=== PATIENT | male | born 1945 | race Caucasian/White ===

== ENCOUNTER 2017-04-25 09:40 | Inpatient (IN) | payer MEDICARE ==
[~2017-04-25] VITALS: Ht 178 cm; Wt 100.0 kg
[2017-04-25] VITALS (15 sets, daily range): BP systolic 110–165; BP diastolic 62–111
--- NOTE | ~2017-04-25 | O ---
[place], [place] OPERATIVE NOTE NAME: IVET JURADO UNIT #: [id number] ROOM: [place] [address] DOCTOR[facility] B[facility] [birth year] DOS: GASTROENDOSCOPIC REPORT HISTORY OF PRESENT ILLNESS: A 71-year-old patient who presented with chief complaint of black tarry stool, history of heavy alcohol consumption, history of esophageal band ligation, the way I understand from him, which has been done in [place] in the past. PAST MEDICAL HISTORY: Coronary artery disease, BPH, diabetes mellitus, and hypertension, migraine cephalalgia. He has been on aspirin products. PROCEDURE: Today's procedure part of investigation is panendoscopy. PREMEDICATION: Versed and Diprivan. SCOPE: Olympus forward-viewing gastroscope Q10 video. REPORT: After putting the patient in the left lateral position and after application of lubricant to the scope, the scope was introduced; thereafter, under direct visualization, advanced through the length of the esophagus. Cervical, thoracic, and distal esophagus was carefully approached, there is severe distal esophageal circular, large segment necrotic ulcers, which is over the underlying esophageal varicosities and at one point we documented oozing from the area. Photographic series obtained. Iced lavage of the area was done. Gastric pouch was entered. Large hiatal hernia seen. Gastric pouch consistent with gastritis. The patient after iced lavage was extubated, tolerated the procedure well. IMPRESSION: Distal esophageal ulcer with necrosis and bleeding, underlying esophageal varicosity. PLAN AND DISCUSSION: The patient has been on aspirin. This is going to be discontinued. The patient is going to be given 6-pack units of platelets for his bleeding to reverse the thrombocytopathy of the aspirin induction. We are going to keep him on Protonix drip. We are going to start him on Sandostatin drip. We are going to keep him in ICU, Gaviscon 2 tablets after meals and at bedtime is going to be permitted, ice cold ice chips, ice water and ice cream. He is already on Toprol-XL 12.5 mg b.i.d. We are going to continue with antiemetics Zofran and we will see if we can have the control of bleeding through reversal of aspirin effect and Sandostatin drip. His underlying disease problem as far as liver has to be verified as serum ammonia level is going to be organized. Lactic acid has been so far negative, workup in progress, ICU management. [place], [place] OPERATIVE NOTE NAME: IVET JURADO UNIT #: [id number] ROOM: [place] [address] DOCTOR: JAMES LEMUS,JOSE ALBERTO BIRTHDATE: [birth year] JOSE ALBERTO RAMIREZ MD CM:OPRECORD:OPERATIVE NOTE 1726 01 JOSE ALBERTO RAMIREZ MD 04/25/172201 interface
--- NOTE | ~2017-04-25 | CON ---
[place], [place] REPORT OF CONSULTATION NAME: IVET JURADO UNIT #: [id number] ROOM: [place] [address] DOCTOR: ZAIN BREWER MD BIRTHDATE: [birth year] DOS: 04/26/2017 NEPHROLOGY CONSULTATION REASON FOR CONSULTATION: Hyponatremia. HISTORY OF PRESENT ILLNESS: The patient is a 71-year-old male. He has a history apparently of alcohol abuse, diabetes, coronary artery disease. He was admitted to the hospital teams with dizziness and hiccups. Apparently, he had an ER visit the day before that with complaints of acid reflux. Again, I did not know the details. The patient had routine labs, which showed hyponatremia as well. Due to his multiple issues, he was admitted to the hospital. Eventually, the patient suddenly became agitated, had DTs, which required ICU admission. He was actually in 4-point restraints. On 04/24, he had labs that showed a sodium of 124. Yesterday, he had 2 lab results, which revealed a sodium of 127 on both occasions. It seems he may have gotten a little bit of fluids including a banana bag. We were consulted yesterday and my partner, Dr. Mata gave instructions not to give any fluid and recheck labs. I was called last night with a sodium level of 127, which was stable and gave no orders. The patient had urine electrolytes that were reviewed and urine osmolality. This afternoon I had seen him, he was again in full DTs and 4-point restraints. His sodium level was 134. I was unable to get any history from the patient due to his current status. ALLERGIES: Listed to BEE STINGS. HOME MEDICATIONS: Included Lexapro, simvastatin, metoprolol, folic acid, aspirin, naltrexone, metformin, vitamin D, thiamine. PAST MEDICAL HISTORY: 1. Alcohol abuse. 2. Anemia. 3. BPH. 4. Coronary artery disease. 5. Diabetes. 6. GERD. 7. History of GI bleed with varices. 8. Hypertension. 9. Leukocytosis. 10. Renal calculi. 11. Appendectomy. 12. History of CABG. 13. Eye surgery. 14. AAA repair. FAMILY HISTORY: From what I can gather, there is no reported history of chronic kidney disease, otherwise noncontributory. There is no history of electrolyte disorders. SOCIAL HISTORY: No illicit drugs. He has a history of tobacco abuse and [place], [place] REPORT OF CONSULTATION NAME: IVET JURADO UNIT #: [id number] ROOM: [place] [address] DOCTOR: ZAIN BREWER MD BIRTHDATE: [birth year] alcohol. REVIEW OF SYSTEMS: As per HPI, otherwise a 10-point review of systems was reviewed and was negative or limited due to his current status. PHYSICAL EXAMINATION: VITAL SIGNS: Temperature 98, pulse 110, respirations 24, blood pressure 153/83. GENERAL: He is critically ill, in 4-point restraints, agitated. HEENT: Shows no appreciable JVD. Sclerae appear anicteric. Mucous membranes appear dry. His oropharynx is otherwise appeared to be clear. NECK: Supple. Trachea is midline. There is no neck lymphadenopathy. There is no thyromegaly. LUNGS: Diminished breath sounds, no appreciable wheeze. There is no tactile fremitus. HEART: Tachycardic. Normal S1, S2. No rub, thrill, or gallop. ABDOMEN: Soft, nontender. I do not appreciate organomegaly, rigidity, rebound, or guarding. There is no CVA tenderness. EXTREMITIES: Showed no edema in his lower extremity or lymphadenopathy. Distal pulses are present. SKIN: Showed no overt rash. There are no petechiae or purpura. Skin temperature was warm. NEUROLOGIC: He was agitated, around at the bed, otherwise neurologic exam was limited. LABORATORY DATA: Hemoglobin 11.7, white count of 6.2, platelets 123. Sodium 134, potassium 4.1, calcium 8.3, albumin 3.4, BUN 12, creatinine 0.97. CK level was 1466. Ammonia 14. Previous CK level was higher at 1621. Urine osmolality was 283. Urine sodium is 14. IMPRESSION: 1. Hyponatremia, which has resolved. This may have been related to volume depletion as well as a low solute state due to likely poor nutrition in the setting of alcohol abuse. 2. History of alcohol abuse with now delirium tremens. 3. Hypertension. 4. Coronary artery disease. 5. Anemia with questionable gastrointestinal bleed. 6. History of tobacco abuse. 7. Mild rhabdomyolysis, which is improving. PLAN: 1. Continue ICU care. Continue treatment for DTs. 2. Consider starting a beta-steven as well as clonidine for his DTs and hypertension. 3. From a renal standpoint, it appears acceptable to start some low rate of fluids. Normal saline would be acceptable; however, if his sodium level tends to rise fast, switch over to half normal saline. 4. Continue to follow labs routinely. 5. From a renal standpoint, does not appear to be any acute issues and his hyponatremia essentially has resolved. We will sign off for now. [place], [place] REPORT OF CONSULTATION NAME: IVET JURADO UNIT #: [id number] ROOM: [place] [address] DOCTOR: DANIELLA LEMUS,ZAIN Perez BIRTHDATE: [birth year] Thank you for this consultation. ZAIN BREWER MD CM:CONSTR:REPORT OF CONSULTATION 1318 04/27/17 0411 interface
--- NOTE | ~2017-04-25 | CON ---
[place], [place] REPORT OF CONSULTATION NAME: IVET JURADO UNIT #: [id number] ROOM: [place] [address] DOCTOR: JOSE ALBERTO RAMIREZ MD BIRTHDATE: [birth year] DOS: 04/25/2017 HISTORY OF PRESENT ILLNESS: A 71-year-old patient who has presented with chief complaint of black tarry stool and concerns. The patient with aggressive alcohol consumption. Recent H was 13 and 40; however, his INR 1.1, magnesium 1.7, lactic acid baseline was 1.7, ethyl alcohol 3. Urine drug screening was unremarkable. Basic metabolic panel shows sodium of 127. CTA of the chest, hiatal hernia, severe reflux, air fluid level at distal esophagus. PAST MEDICAL HISTORY: Associated with cirrhosis, portal hypertension, esophageal varicosities, diabetes mellitus, obesity, hypertension, migraine, cephalalgia. PAST SURGICAL HISTORY: Appendectomy, CABG, abdominal aortic aneurysm repair, eye surgery. SOCIAL HISTORY: Nicotine and heavy alcohol consumption history. FAMILY HISTORY: Noncontributory. ALLERGIES: BEE STING. MEDICATIONS: List has been reviewed. He has been on aspirin. REVIEW OF SYSTEMS: HEENT: Denies double vision, blurry vision. RESPIRATORY: Denies acute shortness of breath. CARDIOVASCULAR: Denies acute chest pain. DIGESTIVE SYSTEM: Black tarry stool, history of cirrhosis and esophageal varicosity and portal hypertension. PHYSICAL EXAMINATION: GENERAL: Obese patient. HEENT: Head normocephalic, nontraumatic. Mouth and buccal mucosa benign. NECK: Supple, no thyromegaly, no cervical lymphadenopathy. CHEST: Symmetric anatomy, equal expansion. No wheeze, no rhonchi. HEART: Normal sinus rhythm, no gallop, no murmur. ABDOMEN: Soft. No hepato-organomegaly, obese, large. No rebound tenderness. EXTREMITIES: No cyanosis, no pedal edema. NEUROLOGIC: Alert and oriented. IMPRESSION: Black tarry stool, ruling out gastrointestinal contribution. Concern is that the patient has had esophageal varicosity. He is telling me that it has been addressed in [facility] in the past and if so, we can prove if he has retrospectively portal hypertension or any contribution from upper gastrointestinal. His radiologic studies, otherwise CTA of the chest reviewed, which has been negative; CT of the head reviewed, no acute intracranial pathology has been identified. PLAN AND DISCUSSION: Upper endoscopy ruling out contribution to black tarry [place], [place] REPORT OF CONSULTATION NAME: IVET JURADO UNIT #: [id number] ROOM: [place] [address] DOCTOR: JAMES LEMUS,JOSE ALBERTO BIRTHDATE: [birth year] stool provided it is not false positive black tarry stools. JOSE ALBERTO RAMIREZ MD CM:CONSTR:REPORT OF CONSULTATION 1704 04/26/17 0019 interface
[~2017-04-25 09:40] MED LIST: ADVAIR 250/501 EA; ALPRAZOLAM0.5 M2 PO; AMOXICILLIN500 M1 PO; ANTABUSE250 M1 PO; ANTIVERT25 MG PO; ATARAX,VISTARIL50 MG PO; ATIVAN1 MG PO; B-1100 MG PO; CLOBETASOL PROP0.05% T; EPI-PEN1 MG/ML MR; FINASTERIDE5 MG PO; FLUOCINOLONE AC T; FLUOCINONIDE0.05% T; LISINOPRIL10 MG PO; LISINOPRIL20 MG PO; METOPROLOL TART50 M1 PO; MIRALAX POWDER17 G1 PO; MIRALAX POWDER17 GM PO; Metformin Hydr500 MG PO; NICOTINE T21 MG/24 H T; OMEPRAZOLE D/R20 MG PO; OMEPRAZOLE20 MG PO; ORPHENADRINE C100 M1 PO; PREDNICOT20 MG; PROFERRIN-FORTE1 TAB PO; PROTONIX40 MG PO; PSYLLIUM HUSK1 POW; ROBAXIN750 MG PO; TAMSULOSIN HYD0.4 MG; TAMSULOSIN HYD0.4 MG PO; THERA1 TAB PO; THORAZINE25 MG PO; TORADOL10 MG PO; TRIAMCINOLONE AC0.1% T; ULTRAM50 MG PO; VENTOLIN H0.09 MG/AC; VICODIN 5/500 505 MG PO; VITAMIN B 12; VITAMIN B-11 TAB PO; VITAMIN B12100 MCG PO; ZOFRAN ODT4 MG SL; ZOLOFT50 MG PO
[2017-04-25 10:20] LABS: BASO % 0.1 % (0.0-1.0); EOS % 0.2 % (1.0-4.0); HEMATOCRIT 39.9 % (42.0-52.0); IG # 0.1 10*3/uL (0.0-0.1); LYMPH # 0.6 10*3/uL (1.3-4.4); MEAN CELL VOLUME 81.6 fl (80.0-94.0); MEAN CORPUSCULAR HGB 26.6 pg (27.0-31.0); MEAN CORPUSCULAR HGB CONC 32.6 g/dl (33.0-37.0); MEAN PLATELET VOLUME 10.9 fl (9.6-12.3); MONO # 0.6 10*3/uL (0.1-1.0); MONO % 6.6 % (3.0-9.0); NEUT # 7.2 10*3/uL (2.3-7.9); NEUT % 85.4 % (47.0-73.0); PLATELET COUNT AUTOMATED 140 10*3/uL (130-400); RED BLOOD COUNT 4.89 10*6/uL (4.50-5.90); RED CELL DISTRI WIDTH 18.1 % (0-14.5); WHITE BLOOD COUNT 8.5 10*3/uL (4.8-10.8)
[2017-04-25 10:29] LABS: INTERNATIONAL NORM RATIO 1.1 (2.0-3.5); PROTHROMBIN TIME 11.8 SECONDS (9.0-12.4)
[2017-04-25 10:35] LABS: ALBUMIN 3.6 gm/dl (3.1-4.5); ALKALINE PHOSPHATASE 58 U/L (45-117); BILIRUBIN, TOTAL 0.6 mg/dl (0.2-1.0); BUN 12 mg/dl (7-24); C-REACTIVE PROTEIN 2.43 MG/DL (0-0.3); CARBON DIOXIDE 20 mmol/L (21-32); CHLORIDE 96 mmol/L (98-107); EST GLOM FILT AFRICAN AMERICAN > 60 ml/min; GLUCOSE 148 mg/dL (65-99); SGOT/AST 81 IU/L (3-35); SGPT/ALT 53 U/L (12-78); SODIUM 127 mmol/L (136-145); TOTAL PROTEIN 7.1 gm/dL (6.4-8.2); TROPONIN I 0.017 ng/ml (<0.045)
[2017-04-25 10:42] LABS: CKMB 56.2 ng/ml (0.5-3.6)
[2017-04-25 10:49] LABS: CPK 2012 U/L (39-308)
[2017-04-25] MEDS ORDERED: LEXAPRO20 MG PO (12:50)
[2017-04-25] MEDS ORDERED: SIMVASTATIN40 MG PO (12:51)
[2017-04-25] MEDS ORDERED: TROSPIUM CHLORI20 M1 PO (12:52)
[2017-04-25] MEDS ORDERED: TOPROL XL25 MG PO (12:53)
[2017-04-25] MEDS ORDERED: NATURE'S BLEND F1 MG PO (12:54)
[2017-04-25] MEDS ORDERED: GAVILAX238 GM PO (13:09)
[2017-04-25] MEDS ORDERED: ASPIRIN CHEWABL81 MG PO (13:10)
[2017-04-25] MEDS ORDERED: NALTREXONE50 MG PO (13:11)
[2017-04-25] MEDS ORDERED: GLUCOPHAGE500 M1 PO (13:12)
[2017-04-25] MEDS ORDERED: NATURE'S BLEND100 M2 PO (13:14)
[2017-04-25] MEDS ORDERED: VITAMIN D31000 UNI1 PO (13:14)
[2017-04-25 14:34] LABS: TROPONIN I < 0.015 ng/ml (<0.045)
[2017-04-25 14:37] LABS: CKMB 46.1 ng/ml (0.5-3.6)
[2017-04-25 15:03] LABS: CPK 1811 U/L (39-308)
[2017-04-25 15:17] LABS: BILIRUBIN 1+ (NEGATIVE); BLOOD NEGATIVE (NEGATIVE); CLARITY CLEAR (CLEAR); COLOR YELLOW (YELLOW); GLUCOSE NEGATIVE (NEGATIVE); KETONE 1+ (NEGATIVE); LEUKO ESTERASE NEGATIVE (NEGATIVE); NITRITE NEGATIVE (NEGATIVE); PH 5.5 (5.0-9.0); PROTEIN 1+ (NEGATIVE); UROBILINOGEN 0.2 E.U./dl (0.2-1.0)
[2017-04-25 15:26] LABS: URINE AMPHETAMINES < 1000 (1000ng/ml); URINE BARBITURATES < 200 (200ng/ml); URINE COCAINE < 300 (300ng/ml)
[2017-04-25 15:27] LABS: BACTERIA TRACE; HYALINE CAST 0-2
[2017-04-25 15:28] LABS: EPITHELIAL CELLS 0-2; URINE REFLEX COMMENT YES (NO)
[2017-04-25 16:55] LABS: BUN 12 mg/dl (7-24); CARBON DIOXIDE 20 mmol/L (21-32); CHLORIDE 97 mmol/L (98-107); EST GLOM FILT AFRICAN AMERICAN > 60 ml/min; GLUCOSE 118 mg/dL (65-99); POTASSIUM 4.5 mmol/L (3.5-5.1); SODIUM 127 mmol/L (136-145)
[2017-04-25 17:08] LABS: CKMB 41.4 ng/ml (0.5-3.6); TROPONIN I < 0.015 ng/ml (<0.045)
[2017-04-25 17:30] LABS: CPK 1621 U/L (39-308)
[2017-04-26] VITALS (10 sets, daily range): BP systolic 119–190; BP diastolic 57–100
[2017-04-26 04:59] LABS: BASO % 0.3 % (0.0-1.0); EOS # 0.1 10*3/uL (0.0-0.4); EOS % 1.6 % (1.0-4.0); HEMATOCRIT 36.4 % (42.0-52.0); HEMOGLOBIN 11.7 g/dl (14.0-18.0); LYMPH # 0.8 10*3/uL (1.3-4.4); LYMPH % 12.7 % (27.0-41.0); MEAN CELL VOLUME 84.3 fl (80.0-94.0); MEAN CORPUSCULAR HGB 27.1 pg (27.0-31.0); MEAN CORPUSCULAR HGB CONC 32.1 g/dl (33.0-37.0); MEAN PLATELET VOLUME 11.1 fl (9.6-12.3); MONO # 0.6 10*3/uL (0.1-1.0); MONO % 9.4 % (3.0-9.0); NEUT # 4.7 10*3/uL (2.3-7.9); NEUT % 75.5 % (47.0-73.0); PLATELET COUNT AUTOMATED 123 10*3/uL (130-400); RED BLOOD COUNT 4.32 10*6/uL (4.50-5.90); RED CELL DISTRI WIDTH 18.4 % (0-14.5); WHITE BLOOD COUNT 6.2 10*3/uL (4.8-10.8)
[2017-04-26 05:13] LABS: ALBUMIN 3.4 gm/dl (3.1-4.5); ALKALINE PHOSPHATASE 53 U/L (45-117); BILIRUBIN, TOTAL 0.9 mg/dl (0.2-1.0); BUN 12 mg/dl (7-24); CARBON DIOXIDE 25 mmol/L (21-32); CHLORIDE 99 mmol/L (98-107); EST GLOM FILT AFRICAN AMERICAN > 60 ml/min; GLUCOSE 137 mg/dL (65-99); POTASSIUM 4.1 mmol/L (3.5-5.1); SGOT/AST 95 IU/L (3-35); SGPT/ALT 74 U/L (12-78); SODIUM 134 mmol/L (136-145); TOTAL PROTEIN 6.6 gm/dL (6.4-8.2)
[2017-04-26 05:25] LABS: CPK 1466 U/L (39-308)
[2017-04-27 00:46] VITALS: BP 160/90
[2017-04-27 04:00] VITALS: BP 144/84
[2017-04-27 06:18] LABS: BASO % 0.1 % (0.0-1.0); EOS # 0.3 10*3/uL (0.0-0.4); EOS % 4.7 % (1.0-4.0); HEMATOCRIT 38.2 % (42.0-52.0); HEMOGLOBIN 12.2 g/dl (14.0-18.0); LYMPH # 0.7 10*3/uL (1.3-4.4); LYMPH % 10.4 % (27.0-41.0); MEAN CELL VOLUME 84.3 fl (80.0-94.0); MEAN CORPUSCULAR HGB 26.9 pg (27.0-31.0); MEAN CORPUSCULAR HGB CONC 31.9 g/dl (33.0-37.0); MEAN PLATELET VOLUME 11.6 fl (9.6-12.3); MONO # 0.7 10*3/uL (0.1-1.0); MONO % 10.5 % (3.0-9.0); NEUT % 73.9 % (47.0-73.0); RED BLOOD COUNT 4.53 10*6/uL (4.50-5.90); RED CELL DISTRI WIDTH 18.6 % (0-14.5); WHITE BLOOD COUNT 6.8 10*3/uL (4.8-10.8)
[2017-04-27 06:38] LABS: ALBUMIN 3.6 gm/dl (3.1-4.5); ALKALINE PHOSPHATASE 55 U/L (45-117); BILIRUBIN, TOTAL 0.7 mg/dl (0.2-1.0); BUN 11 mg/dl (7-24); CARBON DIOXIDE 25 mmol/L (21-32); CHLORIDE 99 mmol/L (98-107); EST GLOM FILT AFRICAN AMERICAN > 60 ml/min; GLUCOSE 123 mg/dL (65-99); SGOT/AST 65 IU/L (3-35); SGPT/ALT 68 U/L (12-78); SODIUM 134 mmol/L (136-145); TOTAL PROTEIN 7.2 gm/dL (6.4-8.2)
[2017-04-27 06:42] LABS: PLATELET COUNT AUTOMATED 174 10*3/uL (130-400)
[2017-04-27 08:00] VITALS: BP 175/90
[2017-04-27 12:00] VITALS: BP 158/90
[2017-04-27 16:00] VITALS: BP 149/92
[2017-04-27 20:00] VITALS: BP 132/99
[2017-04-28] VITALS: BP 159/78
[2017-04-28 04:00] VITALS: BP 150/89
[2017-04-28 06:04] LABS: BUN 15 mg/dl (7-24); CARBON DIOXIDE 24 mmol/L (21-32); CHLORIDE 100 mmol/L (98-107); EST GLOM FILT AFRICAN AMERICAN > 60 ml/min; GLUCOSE 117 mg/dL (65-99); POTASSIUM 4.5 mmol/L (3.5-5.1); SODIUM 137 mmol/L (136-145)
[2017-04-28 06:20] LABS: CKMB 15.7 ng/ml (0.5-3.6)
[2017-04-28 06:22] LABS: BASO % 0.3 % (0.0-1.0); EOS # 0.1 10*3/uL (0.0-0.4); EOS % 0.7 % (1.0-4.0); HEMOGLOBIN 12.9 g/dl (14.0-18.0); IG # 0.1 10*3/uL (0.0-0.1); LYMPH # 0.5 10*3/uL (1.3-4.4); MEAN CORPUSCULAR HGB 26.9 pg (27.0-31.0); MEAN CORPUSCULAR HGB CONC 30.7 g/dl (33.0-37.0); MEAN PLATELET VOLUME 12.1 fl (9.6-12.3); MONO # 1.1 10*3/uL (0.1-1.0); MONO % 11.6 % (3.0-9.0); NEUT # 7.4 10*3/uL (2.3-7.9); NEUT % 81.8 % (47.0-73.0); RED CELL DISTRI WIDTH 19.2 % (0-14.5)
[2017-04-28 06:41] LABS: MEAN CELL VOLUME 87.5 fl (80.0-94.0); PLATELET COUNT AUTOMATED 164 10*3/uL (130-400)
[2017-04-28 07:22] LABS: MONOCYTE # 0.9 10*3/uL (0.1-1.0); NEUTROPHIL # 8.1 10*3/uL (2.3-7.9); NEUTROPHILS 90 % (47-73); PLATELET SUFFICIENCY NORMAL (NORMAL); TOTAL CELLS COUNTED 100 #CELLS
[2017-04-28 08:00] VITALS: BP 159/88
[2017-04-28 12:00] VITALS: BP 102/41; BP 111/83
[2017-04-28 16:00] VITALS: BP 126/76
[2017-04-28 20:00] VITALS: BP 120/64
[2017-04-29] VITALS (7 sets, daily range): BP systolic 97–158; BP diastolic 49–83
[2017-04-29 05:38] LABS: ALBUMIN 3.2 gm/dl (3.1-4.5); ALKALINE PHOSPHATASE 54 U/L (45-117); BILIRUBIN, TOTAL 0.7 mg/dl (0.2-1.0); BUN 15 mg/dl (7-24); CARBON DIOXIDE 29 mmol/L (21-32); CHLORIDE 102 mmol/L (98-107); EST GLOM FILT AFRICAN AMERICAN > 60 ml/min; GLUCOSE 140 mg/dL (65-99); PHOSPHOROUS 1.4 mg/dL (2.5-4.9); POTASSIUM 3.9 mmol/L (3.5-5.1); SGOT/AST 38 IU/L (3-35); SGPT/ALT 52 U/L (12-78); SODIUM 138 mmol/L (136-145); TOTAL PROTEIN 6.8 gm/dL (6.4-8.2)
[2017-04-29 06:02] LABS: BASO % 0.2 % (0.0-1.0); EOS # 0.3 10*3/uL (0.0-0.4); EOS % 3.9 % (1.0-4.0); HEMATOCRIT 39.5 % (42.0-52.0); HEMOGLOBIN 12.3 g/dl (14.0-18.0); LYMPH # 0.8 10*3/uL (1.3-4.4); LYMPH % 11.7 % (27.0-41.0); MEAN CELL VOLUME 86.2 fl (80.0-94.0); MEAN CORPUSCULAR HGB 26.9 pg (27.0-31.0); MEAN CORPUSCULAR HGB CONC 31.1 g/dl (33.0-37.0); MEAN PLATELET VOLUME 11.6 fl (9.6-12.3); MONO # 0.9 10*3/uL (0.1-1.0); MONO % 13.1 % (3.0-9.0); NEUT # 4.7 10*3/uL (2.3-7.9); NEUT % 70.5 % (47.0-73.0); PLATELET COUNT AUTOMATED 182 10*3/uL (130-400); RED BLOOD COUNT 4.58 10*6/uL (4.50-5.90); RED CELL DISTRI WIDTH 19.2 % (0-14.5); WHITE BLOOD COUNT 6.7 10*3/uL (4.8-10.8)
[2017-04-30 00:26] VITALS: BP 175/85
[2017-04-30 06:04] LABS: BASO % 0.2 % (0.0-1.0); EOS # 0.2 10*3/uL (0.0-0.4); EOS % 3.8 % (1.0-4.0); HEMATOCRIT 38.4 % (42.0-52.0); HEMOGLOBIN 12.1 g/dl (14.0-18.0); LYMPH # 0.7 10*3/uL (1.3-4.4); LYMPH % 12.5 % (27.0-41.0); MEAN CELL VOLUME 85.9 fl (80.0-94.0); MEAN CORPUSCULAR HGB 27.1 pg (27.0-31.0); MEAN CORPUSCULAR HGB CONC 31.5 g/dl (33.0-37.0); MONO # 0.7 10*3/uL (0.1-1.0); MONO % 12.7 % (3.0-9.0); NEUT # 3.7 10*3/uL (2.3-7.9); PLATELET COUNT AUTOMATED 162 10*3/uL (130-400); RED BLOOD COUNT 4.47 10*6/uL (4.50-5.90); RED CELL DISTRI WIDTH 19.2 % (0-14.5); WHITE BLOOD COUNT 5.3 10*3/uL (4.8-10.8)
[2017-04-30 06:19] LABS: BUN 15 mg/dl (7-24); CARBON DIOXIDE 28 mmol/L (21-32); CHLORIDE 104 mmol/L (98-107); EST GLOM FILT AFRICAN AMERICAN > 60 ml/min; GLUCOSE 131 mg/dL (65-99); POTASSIUM 3.8 mmol/L (3.5-5.1); SODIUM 137 mmol/L (136-145)
[2017-04-30 08:00] VITALS: BP 156/83
[2017-04-30 12:00] VITALS: BP 143/69
[2017-04-30 16:00] VITALS: BP 164/73
[2017-04-30 20:00] VITALS: BP 116/90
[2017-05-01] VITALS: BP 148/67
[2017-05-01 06:07] LABS: BASO % 0.5 % (0.0-1.0); EOS # 0.1 10*3/uL (0.0-0.4); EOS % 3.2 % (1.0-4.0); HEMATOCRIT 38.5 % (42.0-52.0); HEMOGLOBIN 12.1 g/dl (14.0-18.0); LYMPH # 0.9 10*3/uL (1.3-4.4); LYMPH % 19.5 % (27.0-41.0); MEAN CORPUSCULAR HGB 26.7 pg (27.0-31.0); MEAN CORPUSCULAR HGB CONC 31.4 g/dl (33.0-37.0); MEAN PLATELET VOLUME 10.6 fl (9.6-12.3); MONO # 0.7 10*3/uL (0.1-1.0); MONO % 14.9 % (3.0-9.0); NEUT # 2.7 10*3/uL (2.3-7.9); NEUT % 61.4 % (47.0-73.0); PLATELET COUNT AUTOMATED 180 10*3/uL (130-400); RED BLOOD COUNT 4.53 10*6/uL (4.50-5.90); RED CELL DISTRI WIDTH 19.1 % (0-14.5); WHITE BLOOD COUNT 4.4 10*3/uL (4.8-10.8)
[2017-05-01 06:27] LABS: BUN 12 mg/dl (7-24); CARBON DIOXIDE 27 mmol/L (21-32); CHLORIDE 105 mmol/L (98-107); EST GLOM FILT AFRICAN AMERICAN > 60 ml/min; GLUCOSE 124 mg/dL (65-99); SODIUM 138 mmol/L (136-145)
[2017-05-01 08:00] VITALS: BP 106/83
[2017-05-01 08:36] LABS: ABG BASE EXCESS 2.4 mmol/L (-2.0-2.0); ABG CO2 CONTENT 27.9 mmol/L (23-27); ABG HCO3 26.7 mmol/l (22-26); ABG TEMPERATURE 97.3 F (98.0-99.0); ARTERIAL BLOOD GAS PH 7.429 (7.35-7.45)
[2017-05-01 12:00] VITALS: BP 146/88
[2017-05-01 16:00] VITALS: BP 131/63
[2017-05-01 20:00] VITALS: BP 114/60
[2017-05-02] VITALS: BP 113/63
[2017-05-02 05:03] LABS: BUN 13 mg/dl (7-24); CARBON DIOXIDE 25 mmol/L (21-32); CHLORIDE 104 mmol/L (98-107); EST GLOM FILT AFRICAN AMERICAN > 60 ml/min; GLUCOSE 133 mg/dL (65-99); PHOSPHOROUS 2.5 mg/dL (2.5-4.9); SODIUM 136 mmol/L (136-145)
[2017-05-02 05:56] LABS: BASO % 0.5 % (0.0-1.0); EOS # 0.1 10*3/uL (0.0-0.4); EOS % 2.3 % (1.0-4.0); HEMATOCRIT 39.9 % (42.0-52.0); HEMOGLOBIN 12.7 g/dl (14.0-18.0); LYMPH # 1.1 10*3/uL (1.3-4.4); LYMPH % 25.4 % (27.0-41.0); MEAN CELL VOLUME 85.4 fl (80.0-94.0); MEAN CORPUSCULAR HGB 27.2 pg (27.0-31.0); MEAN CORPUSCULAR HGB CONC 31.8 g/dl (33.0-37.0); MEAN PLATELET VOLUME 11.5 fl (9.6-12.3); MONO # 0.6 10*3/uL (0.1-1.0); MONO % 13.5 % (3.0-9.0); NEUT # 2.5 10*3/uL (2.3-7.9); NEUT % 57.6 % (47.0-73.0); PLATELET COUNT AUTOMATED 192 10*3/uL (130-400); RED BLOOD COUNT 4.67 10*6/uL (4.50-5.90); RED CELL DISTRI WIDTH 19.1 % (0-14.5); WHITE BLOOD COUNT 4.4 10*3/uL (4.8-10.8)
[2017-05-02 08:00] VITALS: BP 132/66
[2017-05-02 12:00] VITALS: BP 112/60
[2017-05-02] MEDS ORDERED: PANTOPRAZOLE SO40 MG PO (12:07)
[2017-05-02] MEDS ORDERED: Carafate1 GM PO (12:07)
== END 2017-05-02 15:43 | disposition other institution (70) | DRG 380 ==
LOC: ED 09:40 → EDHOLD 11:23 → 4E 11:23 → ICCU 11:23 → 4E 11:57 → ICCU 13:14 → 4E 04-29 13:45
PROVIDERS: Emergency Medicine; Internal Medicine; Internal Medicine Nephrology; Student in an Organized Health Care Education/Training Program
PROC: 0DJ08ZZ Inspection of Upper Intestinal Tract, Via Natural or Artificial Opening Endoscopic (ICD-10-PCS; principal; 2017-04-25)
PROC: 30233R1 Transfusion of Nonautologous Platelets into Peripheral Vein, Percutaneous Approach (ICD-10-PCS; principal; 2017-04-25)
DX: K22.11 Ulcer of esophagus with bleeding (principal); G93.41 Metabolic encephalopathy; I85.01 Esophageal varices with bleeding; E11.65 Type 2 diabetes mellitus with hyperglycemia; E87.1 Hypo-osmolality and hyponatremia; D69.6 Thrombocytopenia, unspecified; F10.29 Alcohol dependence with unspecified alcohol-induced disorder; F10.239 Alcohol dependence with withdrawal, unspecified; F17.210 Nicotine dependence, cigarettes, uncomplicated; I10 Essential (primary) hypertension; I25.10 Atherosclerotic heart disease of native coronary artery without angina pectoris; T79.6XXA Traumatic ischemia of muscle, initial encounter; D72.810 Lymphocytopenia; E83.39 Other disorders of phosphorus metabolism; K29.70 Gastritis, unspecified, without bleeding; E66.9 Obesity, unspecified; G43.909 Migraine, unspecified, not intractable, without status migrainosus; E87.8 Other disorders of electrolyte and fluid balance, not elsewhere classified; N40.0 Benign prostatic hyperplasia without lower urinary tract symptoms; R26.81 Unsteadiness on feet; K44.9 Diaphragmatic hernia without obstruction or gangrene; R74.0 Nonspecific elevation of levels of transaminase and lactic acid dehydrogenase [LDH]; Z71.6 Tobacco abuse counseling; Z91.030 Bee allergy status; Z90.49 Acquired absence of other specified parts of digestive tract; Z95.1 Presence of aortocoronary bypass graft; Z79.82 Long term (current) use of aspirin; Z79.899 Other long term (current) drug therapy; Z87.442 Personal history of urinary calculi; Z68.31 Body mass index [BMI] 31.0-31.9, adult

== ENCOUNTER 2019-07-21 06:32 | Inpatient (IN) | payer MEDICARE, OTHER ==
[~2019-07-21] VITALS: Ht 177.8 cm; Wt 92.1 kg
--- NOTE | ~2019-07-21 | EKG ---
[place], [place] ELECTROCARDIOGRAM REPORT NAME: IVET JURADO UNIT #: [id number] ROOM: 505 DOCTOR: THEODORE DRAFT REPORT BIRTHDATE: [birth year] [facility] Test Date: 2019-07-21 Test Time: 07:19:55 Pat Name: IVET JURADO Department: Room: 505 Gender: M Drug Counselor: : 1945 Requested By: YECENIA BHATT Order Number: [id number] Reading MD: Kee Dillard Measurements Intervals [place] Rate: 86 P: 36 MD: 173 QRS: -4 QRSD: 102 T: 43 QT: 441 QTc: 528 Interpretive Statements Sinus rhythm Probable left atrial enlargement Left ventricular hypertrophy Prolonged QT interval Baseline wander in lead(s) V3 Compared to ECG 04/15/2019 15:47:56 Left ventricular hypertrophy now present Prolonged QT interval now present Myocardial infarct finding no longer present Electronically Signed On 07-21-2019 9:42:33 PST by Kee Dillard CM:EKGRPT:ELECTROCARDIOGRAM REPORT 0719 0942 YECENIA JAIMES DRAFT REPORT YECENIA BHATT MD
[~2019-07-21 06:32] MED LIST changes: +ASPIRIN CHEWABL81 MG PO; +Carafate1 GM PO; +GAVILAX238 GM PO; +GLUCOPHAGE500 M1 PO; +LEXAPRO20 MG PO; +LISINOPRIL10 M1 PO; +NALTREXONE50 MG PO; +NATURE'S BLEND F1 MG PO; +NATURE'S BLEND100 M2 PO; +PANTOPRAZOLE SO40 MG PO; +SIMVASTATIN40 MG PO; +TOPROL XL25 MG PO; +TROSPIUM CHLORI20 M1 PO; +VITAMIN D31000 UNI1 PO
[2019-07-21 06:39] VITALS: BP 178/82
--- NOTE | 2019-07-21 06:48 | NUR ---
PT TO TREATMENT ROOM IN NO ACUTE DISTRESS, ASSESSMENT COMPLETE, PT WAITING TO BE SEEN BY MD, CALL TROY IN REACH
--- NOTE | 2019-07-21 06:53 | NUR ---
MD IN TO EVALUATE PT
--- NOTE | 2019-07-21 07:06 | NUR ---
PORTABLE CXR COMPLETE ORDERED, REPORT TO ALIZE MCKEON RN, CARE TRANSFERRED
[2019-07-21 07:23] LABS: BILIRUBIN NEGATIVE (NEGATIVE); BLOOD NEGATIVE (NEGATIVE); CLARITY SL CLOUDY (CLEAR); COLOR YELLOW (YELLOW); GLUCOSE NEGATIVE (NEGATIVE); KETONE TRACE (NEGATIVE); LEUKO ESTERASE 1+ (NEGATIVE); NITRITE NEGATIVE (NEGATIVE); PH 6.5 (5.0-9.0)
[2019-07-21 07:30] VITALS: BP 171/80
[2019-07-21 07:40] LABS: BACTERIA 2+; MUCOUS 2+; WBC 31-40 wbc/hpf (0-5)
[2019-07-21 07:50] LABS: BASO % 0.2 % (0.0-1.0); EOS % 0.1 % (1.0-4.0); HEMATOCRIT 35.1 % (42.0-52.0); HEMOGLOBIN 10.8 g/dl (14.0-18.0); LYMPH # 0.7 10*3/uL (1.3-4.4); LYMPH % 5.4 % (27.0-41.0); MEAN CORPUSCULAR HGB 25.2 pg (27.0-31.0); MEAN CORPUSCULAR HGB CONC 30.8 g/dl (33.0-37.0); MEAN PLATELET VOLUME 11.9 fl (9.6-12.3); MONO # 1.1 10*3/uL (0.1-1.0); NEUT # 11.3 10*3/uL (2.3-7.9); NEUT % 85.8 % (47.0-73.0); PLATELET COUNT AUTOMATED 128 10*3/uL (130-400); RED BLOOD COUNT 4.28 10*6/uL (4.50-5.90); RED CELL DISTRI WIDTH 16.5 % (0-14.5); WHITE BLOOD COUNT 13.1 10*3/uL (4.8-10.8)
--- NOTE | 2019-07-21 07:55 | NUR ---
REPORT RECEIVED AT 0710 FROM JAQUAN KNOX. THIS PT IS AWAKE,HE IS ALERT TO PERSON/PLACE. HIS COLOR IS PINK,SKIN W/D. RESPIRATIONS ARE NON-LABORED. A URINE SAMPLE HAS BEEN OBTAINED AND SENT TO LAB. NO CO DISCOMFORT AT THIS TIME. ADAL KNOX
[2019-07-21 08:01] LABS: ACT PARTIAL THROMBO TIME 23.5 SECONDS (20.0-32.1); INTERNATIONAL NORM RATIO 1.1 (2.0-3.5)
[2019-07-21 08:13] LABS: ALBUMIN 2.6 gm/dl (3.1-4.5); BUN 8 mg/dl (7-24); CHLORIDE 105 mmol/L (98-107); POTASSIUM 3.6 mmol/L (3.5-5.1); SGOT/AST 16 IU/L (3-35); SGPT/ALT 15 U/L (12-78); SODIUM 136 mmol/L (136-145); TOTAL PROTEIN 6.4 gm/dL (6.4-8.2)
[2019-07-21 08:16] LABS: ALKALINE PHOSPHATASE 54 U/L (45-117)
[2019-07-21 08:25] LABS: TROPONIN I < 0.015 ng/ml (<0.045)
[2019-07-21 10:04] VITALS: BP 146/79
[2019-07-21 10:30] VITALS: BP 175/76
--- NOTE | 2019-07-21 10:30 | NUR ---
A 73, admitted to , under the services of JAYLIN Frank DO with a diagnosis of UTI, ENCEPHALOPATHY. Chief complaint is WEAKNESS. Patient arrived via stretcher from ER. Monitor applied. Initial assessment completed. Vital signs taken and recorded. JAYLIN FRANK DO notified of admission to the unit. Orders received. See assessment for past medical history, medications and allergies. Patient and/or family oriented to unit. [facility] visitation policy reviewed. Clothing/patient valuable form completed. TEMO ROBERTSON
[2019-07-21] MEDS ORDERED: FLOMAX0.4 MG PO (10:56)
[2019-07-21] MEDS ORDERED: Motrin,Rufen800 MG PO (10:57)
[2019-07-21] MEDS ORDERED: TRAZODONE50 MG PO (10:58)
[2019-07-21] MEDS ORDERED: VIVITROL380 MG IM (11:03)
[2019-07-21 16:00] VITALS: BP 120/86
[2019-07-21 20:00] VITALS: BP 163/69
--- NOTE | 2019-07-21 21:46 | NUR ---
24 HR chart check completed.
[2019-07-22] VITALS: BP 143/42
[2019-07-22 06:36] LABS: BASO % 0.2 % (0.0-1.0); EOS % 0.2 % (1.0-4.0); HEMATOCRIT 34.3 % (42.0-52.0); HEMOGLOBIN 10.5 g/dl (14.0-18.0); LYMPH # 0.8 10*3/uL (1.3-4.4); LYMPH % 6.9 % (27.0-41.0); MEAN CELL VOLUME 81.7 fl (80.0-94.0); MEAN CORPUSCULAR HGB CONC 30.6 g/dl (33.0-37.0); MEAN PLATELET VOLUME 11.8 fl (9.6-12.3); MONO # 0.7 10*3/uL (0.1-1.0); MONO % 5.9 % (3.0-9.0); NEUT # 9.6 10*3/uL (2.3-7.9); NEUT % 85.9 % (47.0-73.0); PLATELET COUNT AUTOMATED 136 10*3/uL (130-400); RED CELL DISTRI WIDTH 16.3 % (0-14.5); WHITE BLOOD COUNT 11.1 10*3/uL (4.8-10.8)
[2019-07-22 07:08] LABS: ALBUMIN 2.6 gm/dl (3.1-4.5); ALKALINE PHOSPHATASE 60 U/L (45-117); BUN 7 mg/dl (7-24); CHLORIDE 105 mmol/L (98-107); CREATININE 0.85 mg/dL (0.70-1.30); PHOSPHOROUS 2.1 mg/dL (2.5-4.9); POTASSIUM 3.6 mmol/L (3.5-5.1); SGOT/AST 16 IU/L (3-35); SODIUM 136 mmol/L (136-145); TOTAL PROTEIN 6.5 gm/dL (6.4-8.2)
[2019-07-22 07:10] LABS: SGPT/ALT 16 U/L (12-78)
--- NOTE | 2019-07-22 11:00 | NUR ---
PHYSICAL THERAPY Pt peacefully sleeping and snoring in bed. Unable to be woken. Per nursing, Pt is still very confused. Will attempt at a later time. Thank you Krystal Marsh, PT, DPT
--- NOTE | 2019-07-22 11:15 | NUR ---
Billing Services Manager in to talk to patient. Patient states lives at HOME with . There are FEW steps in the home. Physician: JOSE L Pharmacy: [facility] health services: NONE Patient's level of ADLs: MINIMAL ASSIST Patient has working utilities: YES DME: NONE Follow-up physician's appointment after d/c: WILL BE MADE BY HOSPITALIST NURSE DIRECTOR ON DISCHARGE Does patient want to access PORTAL?: NO Discharge plan PT LIVES AT HOME WITH HIS . STATES HE PLANS TO RETURN HOME ON DISCHARGE WHEN MEDICALLY STABLE. STATES HE IS ABLE TO WALK ON HIS OWN AND DO HIS OWN ADLS. WILL CONTINUE TO FOLLOW. WILL HAVE A RIDE HOME ON DISCHARGE. . BOGDAN JAQUEZ
[2019-07-22 12:00] VITALS: BP 130/45
--- NOTE | 2019-07-22 18:35 | NUR ---
PHONE CONSENT OBTAINED FOR TRANSFER FROM [facility] JURADO.
--- NOTE | 2019-07-22 19:33 | NUR ---
24 HR chart check completed.
--- NOTE | 2019-07-22 20:32 | NUR ---
CALLED PATRICK AND NOTIFIED HER OF ROOM NUMBER. ADDRESS AND TELEPHONE NUMBER OF [facility] WAS PROVIDED TO THE WELL.
--- NOTE | 2019-07-22 20:38 | NUR ---
CALLED NURSE TO NURSE AT [facility]. D/C PACKET PRINTED. PT IS NONMONITORED AND IV IS GOING WITH PT DURING TRANSPORT. PATRICK IS AWARE OF TRANSPORTATION AND ROOM NUMBER.
--- NOTE | 2019-07-22 21:57 | NUR ---
Discharge instructions PLACED IN TRANSPORTATION PACKET. Patient IS understanding THE PURPOSE OF THE TRANSPORT. PT IS LEAVING WITH IV AND FLUIDS RUNNING. ESTER ESCOBAR
== END 2019-07-22 22:10 | disposition short-term general hospital (02) | DRG 689 ==
LOC: ED 06:32 → EDHOLD 09:52 → 5E 09:52
PROVIDERS: Emergency Medicine; Internal Medicine; ADMIT Family Medicine
DX: N39.0 Urinary tract infection, site not specified (principal); G93.41 Metabolic encephalopathy; E43 Unspecified severe protein-calorie malnutrition; E11.65 Type 2 diabetes mellitus with hyperglycemia; F43.10 Post-traumatic stress disorder, unspecified; I10 Essential (primary) hypertension; D69.6 Thrombocytopenia, unspecified; R31.29 Other microscopic hematuria; F17.210 Nicotine dependence, cigarettes, uncomplicated; I25.10 Atherosclerotic heart disease of native coronary artery without angina pectoris; N40.1 Benign prostatic hyperplasia with lower urinary tract symptoms; D64.9 Anemia, unspecified; R33.8 Other retention of urine; K21.9 Gastro-esophageal reflux disease without esophagitis; G43.909 Migraine, unspecified, not intractable, without status migrainosus; E66.9 Obesity, unspecified; Z79.84 Long term (current) use of oral hypoglycemic drugs; Z85.46 Personal history of malignant neoplasm of prostate; Z91.030 Bee allergy status; Z95.1 Presence of aortocoronary bypass graft; Z90.49 Acquired absence of other specified parts of digestive tract; Z79.82 Long term (current) use of aspirin; Z71.6 Tobacco abuse counseling

== ENCOUNTER 2019-08-06 07:36 | Emergency (ER) | payer OTHER ==
[~2019-08-06] VITALS: Ht 177.8 cm; Wt 99.8 kg
--- NOTE | ~2019-08-06 | EKG ---
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
[~2019-08-06 07:36] MED LIST changes: +FLOMAX0.4 MG PO; +Motrin,Rufen800 MG PO; +TRAZODONE50 MG PO; +VIVITROL380 MG IM
[2019-08-06 07:37] VITALS: BP 145/93
[2019-08-06 08:46] LABS: BASO % 0.3 % (0.0-1.0); EOS % 0.3 % (1.0-4.0); HEMATOCRIT 33.5 % (42.0-52.0); HEMOGLOBIN 10.3 g/dl (14.0-18.0); LYMPH # 0.7 10*3/uL (1.3-4.4); LYMPH % 12.1 % (27.0-41.0); MEAN CELL VOLUME 80.9 fl (80.0-94.0); MEAN CORPUSCULAR HGB 24.9 pg (27.0-31.0); MEAN CORPUSCULAR HGB CONC 30.7 g/dl (33.0-37.0); MEAN PLATELET VOLUME 11.5 fl (9.6-12.3); MONO # 0.4 10*3/uL (0.1-1.0); MONO % 6.5 % (3.0-9.0); NEUT # 4.8 10*3/uL (2.3-7.9); NEUT % 80.5 % (47.0-73.0); PLATELET COUNT AUTOMATED 191 10*3/uL (130-400); RED BLOOD COUNT 4.14 10*6/uL (4.50-5.90); RED CELL DISTRI WIDTH 17.3 % (0-14.5)
[2019-08-06 08:57] LABS: ACT PARTIAL THROMBO TIME 25.5 SECONDS (20.0-32.1); INTERNATIONAL NORM RATIO 1.1 (2.0-3.5)
[2019-08-06 08:58] LABS: ALBUMIN 2.9 gm/dl (3.1-4.5); ALKALINE PHOSPHATASE 54 U/L (45-117); BUN 10 mg/dl (7-24); CHLORIDE 104 mmol/L (98-107); CREATININE 1.11 mg/dL (0.70-1.30); LIPASE 68 U/L (73-393); POTASSIUM 3.6 mmol/L (3.5-5.1); SGOT/AST 8 IU/L (3-35); SGPT/ALT 17 U/L (12-78); SODIUM 140 mmol/L (136-145); TOTAL PROTEIN 6.3 gm/dL (6.4-8.2)
[2019-08-06 08:59] LABS: TROPONIN I < 0.015 ng/ml (<0.045)
[2019-08-06 09:54] LABS: BILIRUBIN NEGATIVE (NEGATIVE); BLOOD 3+ (NEGATIVE); CLARITY CLOUDY (CLEAR); COLOR YELLOW (YELLOW); GLUCOSE NEGATIVE (NEGATIVE); KETONE NEGATIVE (NEGATIVE); LEUKO ESTERASE 2+ (NEGATIVE); NITRITE POSITIVE (NEGATIVE); PH 8.5 (5.0-9.0)
[2019-08-06 10:14] LABS: BACTERIA 4+; COARSE GRANULAR CAST 0-2; RBC TNTC rbc/hpf (0-2); WBC TNTC wbc/hpf (0-5)
[2019-08-06] MEDS ORDERED: PHENERGAN25 M3 PO (12:12)
== END 2019-08-06 12:14 | disposition home or self-care (01) ==
LOC: ED 07:36
PROVIDERS: Emergency Medicine
DX: T83.038A Leakage of other urinary catheter, initial encounter (principal); N39.0 Urinary tract infection, site not specified; R79.1 Abnormal coagulation profile; F17.200 Nicotine dependence, unspecified, uncomplicated; Z91.030 Bee allergy status; Z79.899 Other long term (current) drug therapy; Z79.82 Long term (current) use of aspirin; Y84.6 Urinary catheterization as the cause of abnormal reaction of the patient, or of later complication, without mention of misadventure at the time of the procedure; Y92.89 Other specified places as the place of occurrence of the external cause

== ENCOUNTER 2020-03-01 12:13 | Inpatient (IN) | payer OTHER ==
[2020-03-01] VITALS (10 sets, daily range): BP systolic 117–189; BP diastolic 52–90
[~2020-03-01] VITALS: Ht 177.8 cm; Wt 90.7 kg
[~2020-03-01 12:13] MED LIST changes: +ISO D3 2,000 U1 EACH PO; +PHENERGAN25 M3 PO; -VITAMIN D31000 UNI1 PO
[2020-03-01 13:16] LABS: ALBUMIN 3.1 gm/dl (3.1-4.5); ALKALINE PHOSPHATASE 59 U/L (45-117); BUN 12 mg/dl (7-24); CHLORIDE 109 mmol/L (98-107); POTASSIUM 3.2 mmol/L (3.5-5.1); SGOT/AST 4 IU/L (3-35); SGPT/ALT 13 U/L (12-78); SODIUM 143 mmol/L (136-145); TOTAL PROTEIN 6.4 gm/dL (6.4-8.2)
[2020-03-01 13:17] LABS: TROPONIN I < 0.015 ng/ml (<0.045)
[2020-03-01 13:36] LABS: MEAN CELL VOLUME 69.8 fl (80.0-94.0); MEAN CORPUSCULAR HGB 19.5 pg (27.0-31.0); MEAN CORPUSCULAR HGB CONC 27.9 g/dl (33.0-37.0); PLATELET COUNT AUTOMATED 145 10*3/uL (130-400); RED BLOOD COUNT 4.01 10*6/uL (4.50-5.90); RED CELL DISTRI WIDTH 22.3 % (0-14.5); WHITE BLOOD COUNT 6.3 10*3/uL (4.8-10.8)
[2020-03-01 13:46] LABS: PLATELET SUFFICIENCY NORMAL (NORMAL); TOTAL CELLS COUNTED 100 #CELLS
[2020-03-01 13:47] LABS: BURR CELLS FEW; MICROCYTOSIS MODERATE; OVALOCYTES FEW; POLYCHROMASIA SLIGHT; ROULEAUX SLIGHT; SCHISTOCYTES FEW
[2020-03-01 15:06] LABS: BILIRUBIN 1+ (NEGATIVE); BLOOD NEGATIVE (NEGATIVE); CLARITY CLEAR (CLEAR); COLOR YELLOW (YELLOW); GLUCOSE NEGATIVE (NEGATIVE); KETONE NEGATIVE (NEGATIVE); SPECIFIC GRAVITY 1.015 (1.005-1.030)
[2020-03-01 15:07] LABS: BACTERIA TRACE; LEUKO ESTERASE TRACE (NEGATIVE); NITRITE NEGATIVE (NEGATIVE); PH 6.5 (5.0-9.0)
[2020-03-01] MEDS ORDERED: TOPROL XL25 MG PO (18:48)
[2020-03-02] VITALS (9 sets, daily range): BP systolic 117–176; BP diastolic 53–77
[2020-03-02 05:42] LABS: MEAN CELL VOLUME 71.6 fl (80.0-94.0); MEAN CORPUSCULAR HGB 21.1 pg (27.0-31.0); MEAN CORPUSCULAR HGB CONC 29.4 g/dl (33.0-37.0); PLATELET COUNT AUTOMATED 164 10*3/uL (130-400); RED BLOOD COUNT 4.75 10*6/uL (4.50-5.90); RED CELL DISTRI WIDTH 22.4 % (0-14.5); WHITE BLOOD COUNT 7.3 10*3/uL (4.8-10.8)
[2020-03-02 05:47] LABS: BUN 13 mg/dl (7-24); CHLORIDE 110 mmol/L (98-107); CREATININE 0.96 mg/dL (0.70-1.30); POTASSIUM 3.3 mmol/L (3.5-5.1); SODIUM 141 mmol/L (136-145)
[2020-03-02 06:08] LABS: BASOPHILS 1 % (0-1); BURR CELLS FEW; MICROCYTOSIS MODERATE; OVALOCYTES FEW; PLATELET SUFFICIENCY NORMAL (NORMAL); POLYCHROMASIA SLIGHT; TARGET CELLS FEW; TOTAL CELLS COUNTED 100 #CELLS
[2020-03-03] VITALS: BP 183/67
[2020-03-03 07:21] LABS: BASO % 0.4 % (0.0-1.0); EOS # 0.3 10*3/uL (0.0-0.4); EOS % 3.7 % (1.0-4.0); HEMATOCRIT 34.5 % (42.0-52.0); LYMPH # 1.2 10*3/uL (1.3-4.4); MEAN CELL VOLUME 72.8 fl (80.0-94.0); MEAN CORPUSCULAR HGB 20.9 pg (27.0-31.0); MEAN CORPUSCULAR HGB CONC 28.7 g/dl (33.0-37.0); MONO # 0.6 10*3/uL (0.1-1.0); NEUT # 5.2 10*3/uL (2.3-7.9); NEUT % 71.6 % (47.0-73.0); PLATELET COUNT AUTOMATED 161 10*3/uL (130-400); RED BLOOD COUNT 4.74 10*6/uL (4.50-5.90); RED CELL DISTRI WIDTH 22.5 % (0-14.5); WHITE BLOOD COUNT 7.3 10*3/uL (4.8-10.8)
[2020-03-03 07:45] LABS: BUN 13 mg/dl (7-24); CHLORIDE 111 mmol/L (98-107); CREATININE 0.91 mg/dL (0.70-1.30); POTASSIUM 3.2 mmol/L (3.5-5.1); SODIUM 140 mmol/L (136-145)
[2020-03-03 08:00] VITALS: BP 172/59
[2020-03-03 12:00] VITALS: BP 175/68
[2020-03-03 20:00] VITALS: BP 142/57
[2020-03-04] VITALS: BP 159/71
[2020-03-04] MEDS ORDERED: AMLODIPINE BESYL5 MG PO (05:22)
[2020-03-04 06:00] LABS: BUN 14 mg/dl (7-24); CHLORIDE 111 mmol/L (98-107); CREATININE 0.88 mg/dL (0.70-1.30); POTASSIUM 3.4 mmol/L (3.5-5.1); SODIUM 140 mmol/L (136-145)
[2020-03-04 06:03] LABS: HEMATOCRIT 32.7 % (42.0-52.0); MEAN CELL VOLUME 73.5 fl (80.0-94.0); MEAN CORPUSCULAR HGB 20.9 pg (27.0-31.0); MEAN CORPUSCULAR HGB CONC 28.4 g/dl (33.0-37.0); PLATELET COUNT AUTOMATED 167 10*3/uL (130-400); RED BLOOD COUNT 4.45 10*6/uL (4.50-5.90); RED CELL DISTRI WIDTH 23.1 % (0-14.5); WHITE BLOOD COUNT 7.5 10*3/uL (4.8-10.8)
[2020-03-04 07:54] LABS: BASOPHILS 2 % (0-1); TOTAL CELLS COUNTED 100 #CELLS
[2020-03-04 07:55] LABS: MICROCYTOSIS SLIGHT; PLATELET SUFFICIENCY NORMAL (NORMAL)
[2020-03-04 08:00] VITALS: BP 111/58
== END 2020-03-04 08:55 | disposition home or self-care (01) | DRG 378 ==
LOC: ED 12:13 → EDHOLD 17:45 → 4E 17:45
PROVIDERS: Emergency Medicine; Surgery; ADMIT Internal Medicine
PROC: 30233N1 Transfusion of Nonautologous Red Blood Cells into Peripheral Vein, Percutaneous Approach (ICD-10-PCS; principal; 2020-03-01)
PROC: 0DB68ZX Excision of Stomach, Via Natural or Artificial Opening Endoscopic, Diagnostic (ICD-10-PCS; 2020-03-02)
DX: K25.4 Chronic or unspecified gastric ulcer with hemorrhage (principal); D62 Acute posthemorrhagic anemia; S22.42XA Multiple fractures of ribs, left side, initial encounter for closed fracture; I10 Essential (primary) hypertension; K20.9 Esophagitis, unspecified; F17.210 Nicotine dependence, cigarettes, uncomplicated; K29.90 Gastroduodenitis, unspecified, without bleeding; N40.1 Benign prostatic hyperplasia with lower urinary tract symptoms; R62.7 Adult failure to thrive; R33.8 Other retention of urine; E87.6 Hypokalemia; S80.212A Abrasion, left knee, initial encounter; S80.211A Abrasion, right knee, initial encounter; W10.8XXA Fall (on) (from) other stairs and steps, initial encounter; Y92.89 Other specified places as the place of occurrence of the external cause; Y93.89 Activity, other specified; Y99.8 Other external cause status; Z95.1 Presence of aortocoronary bypass graft; Z91.030 Bee allergy status; Z68.28 Body mass index [BMI] 28.0-28.9, adult

== ENCOUNTER 2020-03-28 09:52 | Observation (INO) | payer OTHER, MEDICARE ==
[~2020-03-28] VITALS: Ht 177.8 cm; Wt 87.6 kg
[~2020-03-28 09:52] MED LIST changes: +AMLODIPINE BESYL5 MG PO
[2020-03-28 10:06] VITALS: BP 136/75
[2020-03-28 10:35] LABS: BASO % 0.4 % (0.0-1.0); EOS # 0.1 10*3/uL (0.0-0.4); EOS % 2.7 % (1.0-4.0); HEMATOCRIT 31.4 % (42.0-52.0); LYMPH # 0.8 10*3/uL (1.3-4.4); LYMPH % 17.3 % (27.0-41.0); MEAN CELL VOLUME 74.2 fl (80.0-94.0); MEAN CORPUSCULAR HGB 21.3 pg (27.0-31.0); MEAN CORPUSCULAR HGB CONC 28.7 g/dl (33.0-37.0); MONO # 0.4 10*3/uL (0.1-1.0); NEUT # 3.4 10*3/uL (2.3-7.9); NEUT % 71.2 % (47.0-73.0); PLATELET COUNT AUTOMATED 141 10*3/uL (130-400); RED BLOOD COUNT 4.23 10*6/uL (4.50-5.90); WHITE BLOOD COUNT 4.8 10*3/uL (4.8-10.8)
[2020-03-28 10:44] LABS: ACT PARTIAL THROMBO TIME 23.8 SECONDS (20.0-32.1); INTERNATIONAL NORM RATIO 1.1 (2.0-3.5)
[2020-03-28 10:48] LABS: ALBUMIN 3.3 gm/dl (3.1-4.5); ALKALINE PHOSPHATASE 72 U/L (45-117); BUN 13 mg/dl (7-24); CHLORIDE 110 mmol/L (98-107); CREATININE 1.05 mg/dL (0.70-1.30); LIPASE 115 U/L (73-393); POTASSIUM 4.1 mmol/L (3.5-5.1); SGOT/AST 9 IU/L (3-35); SGPT/ALT 12 U/L (12-78); SODIUM 141 mmol/L (136-145); TOTAL PROTEIN 6.6 gm/dL (6.4-8.2)
[2020-03-28 10:50] LABS: TROPONIN I < 0.015 ng/ml (<0.045)
[2020-03-28 11:48] VITALS: BP 173/87
[2020-03-28] MEDS ORDERED: POLYETHYLENE GLY1 G1 MC (13:05)
[2020-03-28] MEDS ORDERED: B-121000 MCG PO (13:06)
[2020-03-28] MEDS ORDERED: GLUCOPHAGE500 M1 PO (13:07)
[2020-03-28] MEDS ORDERED: VITAMIN D325 GM MC (13:08)
[2020-03-28 16:00] VITALS: BP 140/34
[2020-03-28 18:51] LABS: BILIRUBIN NEGATIVE (NEGATIVE); BLOOD NEGATIVE (NEGATIVE); CALCIUM OXALATE CRYSTALS 1+; CLARITY CLEAR (CLEAR); COLOR YELLOW (YELLOW); GLUCOSE NEGATIVE (NEGATIVE); KETONE NEGATIVE (NEGATIVE); LEUKO ESTERASE NEGATIVE (NEGATIVE); NITRITE NEGATIVE (NEGATIVE)
[2020-03-28 20:00] VITALS: BP 131/71
[2020-03-29] VITALS: BP 162/66
[2020-03-29 06:35] LABS: BASO % 0.5 % (0.0-1.0); EOS # 0.2 10*3/uL (0.0-0.4); EOS % 5.6 % (1.0-4.0); HEMATOCRIT 29.8 % (42.0-52.0); LYMPH % 22.7 % (27.0-41.0); MEAN CELL VOLUME 74.3 fl (80.0-94.0); MEAN CORPUSCULAR HGB 20.9 pg (27.0-31.0); MEAN CORPUSCULAR HGB CONC 28.2 g/dl (33.0-37.0); MONO # 0.3 10*3/uL (0.1-1.0); MONO % 6.8 % (3.0-9.0); NEUT # 2.7 10*3/uL (2.3-7.9); NEUT % 64.2 % (47.0-73.0); PLATELET COUNT AUTOMATED 133 10*3/uL (130-400); RED BLOOD COUNT 4.01 10*6/uL (4.50-5.90); WHITE BLOOD COUNT 4.3 10*3/uL (4.8-10.8)
[2020-03-29 06:57] LABS: BUN 14 mg/dl (7-24); CHLORIDE 111 mmol/L (98-107); CHOLESTEROL 95 mg/dL (<200); CREATININE 0.99 mg/dL (0.70-1.30); HDL CHOLESTEROL 37 mg/dl (40-60); IRON 27 ug/dL (65-175); LDL CHOLESTEROL 41 mg/dL (9-159); POTASSIUM 3.8 mmol/L (3.5-5.1); SODIUM 141 mmol/L (136-145); TOTAL IRON BINDING CAPACITY 366 ug/dl (250-450); TRIGLYCERIDES 86 mg/dl (<150); VLDL CHOLESTEROL 17 mg/dL (6-40)
[2020-03-29 07:50] LABS: FERRITIN 7.1 ng/mL (22.0-322.0); VITAMIN D, 25-HYDROXY 41.6 ng/mL (30-100)
[2020-03-29 08:00] VITALS: BP 136/82
[2020-03-29 12:00] VITALS: BP 142/55
[2020-03-29] MEDS ORDERED: FINASTERIDE5 M1 PO (12:26)
[2020-03-29] MEDS ORDERED: FEROSUL325 MG PO (12:26)
== END 2020-03-29 14:20 | disposition home or self-care (01) ==
LOC: ED 09:52 → EDHOLD 11:30 → 5E 11:42
PROVIDERS: Emergency Medicine; Student in an Organized Health Care Education/Training Program; ADMIT Internal Medicine
DX: R55 Syncope and collapse (principal); R42 Dizziness and giddiness; E87.8 Other disorders of electrolyte and fluid balance, not elsewhere classified; E11.65 Type 2 diabetes mellitus with hyperglycemia; E83.41 Hypermagnesemia; I10 Essential (primary) hypertension; F17.210 Nicotine dependence, cigarettes, uncomplicated; N40.0 Benign prostatic hyperplasia without lower urinary tract symptoms; Z91.81 History of falling

== ENCOUNTER → 2023-05-06 | Outpatient (CLI) | payer MEDICARE ==
[~2023-05-06] MED LIST changes: +B-121000 MCG PO; +FEROSUL325 MG PO; +FINASTERIDE5 M1 PO; +POLYETHYLENE GLY1 G1 MC; +VITAMIN D325 GM MC
== END | disposition home or self-care (01) ==
LOC: RAD 10:41
PROVIDERS: ATTEND Chiropractor
DX: M47.816 Spondylosis without myelopathy or radiculopathy, lumbar region (principal); M25.78 Osteophyte, vertebrae

== ENCOUNTER → 2023-08-05 | Outpatient (CLI) | payer MEDICARE, OTHER ==
[2023-08-05 09:09] LABS: ALKALINE PHOSPHATASE 47 U/L (46-116); BUN 13 mg/dl (9-23); CHLORIDE 109 mmol/L (98-107); POTASSIUM 4.7 mmol/L (3.4-5.1); SGPT/ALT 8 U/L (5-49); TOTAL PROTEIN 6.6 gm/dL (6.0-8.0)
== END | disposition home or self-care (01) ==
LOC: LAB 01:58
PROVIDERS: ATTEND Orthopaedic Surgery
DX: M54.6 Pain in thoracic spine (principal); R53.83 Other fatigue

== ENCOUNTER → 2023-11-27 | Outpatient (CLI) | payer MEDICARE, OTHER ==
[2023-11-27 09:45] LABS: ALKALINE PHOSPHATASE 41 U/L (46-116); BUN 11 mg/dl (9-23); CHLORIDE 108 mmol/L (98-107); POTASSIUM 4.8 mmol/L (3.4-5.1); SGPT/ALT 9 U/L (5-49); TOTAL PROTEIN 6.6 gm/dL (6.0-8.0)
== END | disposition home or self-care (01) ==
LOC: LAB 03:46
PROVIDERS: ATTEND Orthopaedic Surgery
DX: M46.96 Unspecified inflammatory spondylopathy, lumbar region (principal); R53.82 Chronic fatigue, unspecified

== ENCOUNTER → 2024-04-13 | Outpatient (CLI) | payer OTHER | END | disposition home or self-care (01) | LOC: MRI 02:13 | PROVIDERS: ATTEND Psychiatry & Neurology Psychiatry | DX: R41.3 Other amnesia (principal); R25.1 Tremor, unspecified ==

== ENCOUNTER 2024-04-26 14:36 | Emergency (ER) | payer MEDICARE, OTHER ==
[~2024-04-26] VITALS: Ht 157.4 cm; Wt 81.6 kg
[2024-04-26 14:51] VITALS: BP 129/68
[2024-04-26 15:54] LABS: BASO % 0.1 % (0.0-1.0); EOS % 0.5 % (1.0-4.0); HEMATOCRIT 38.4 % (42.0-52.0); LYMPH # 0.5 10*3/uL (1.3-4.4); LYMPH % 5.9 % (27.0-41.0); MEAN CELL VOLUME 89.5 fl (80.0-94.0); MEAN CORPUSCULAR HGB CONC 31.3 g/dl (33.0-37.0); MEAN PLATELET VOLUME 10.4 fl (9.6-12.3); MONO # 0.7 10*3/uL (0.1-1.0); MONO % 8.1 % (3.0-9.0); NEUT # 6.9 10*3/uL (2.3-7.9); PLATELET COUNT AUTOMATED 164 10*3/uL (130-400); RED BLOOD COUNT 4.29 10*6/uL (4.50-5.90); RED CELL DISTRI WIDTH 22.4 % (0-14.5); WHITE BLOOD COUNT 8.2 10*3/uL (4.8-10.8)
[2024-04-26 16:13] LABS: POTASSIUM 4.1 mmol/L (3.4-5.1); TOTAL PROTEIN 6.3 gm/dL (6.0-8.0)
[2024-04-26] MEDS ORDERED: ANTIVERT25 M2 PO (17:38)
== END 2024-04-26 18:11 | disposition home or self-care (01) ==
LOC: ED 14:36
PROVIDERS: Internal Medicine
DX: S00.01XA Abrasion of scalp, initial encounter (principal); S80.212A Abrasion, left knee, initial encounter; S80.211A Abrasion, right knee, initial encounter; E11.9 Type 2 diabetes mellitus without complications; F32.A Depression, unspecified; F41.9 Anxiety disorder, unspecified; I10 Essential (primary) hypertension; F17.200 Nicotine dependence, unspecified, uncomplicated; Z91.030 Bee allergy status; Z90.49 Acquired absence of other specified parts of digestive tract; Z98.890 Other specified postprocedural states; W01.198A Fall on same level from slipping, tripping and stumbling with subsequent striking against other object, initial encounter; Y93.01 Activity, walking, marching and hiking; Y92.89 Other specified places as the place of occurrence of the external cause; Y99.8 Other external cause status

== ENCOUNTER → 2024-11-17 | Day surgery (SDC) | payer MEDICARE, OTHER ==
[~2024-11-17] MED LIST changes: +ANTIVERT25 M2 PO; +Balanced Salt Solution 500 ML OPH SCH; +Cefuroxime Sodium 5 MG in BALANCED SALT IRRIG SOLN NO.2 0.5 ML,SYRINGE, DISPOSABLE, 10 ... IO SCH; +Midazolam Hydrochloride 2 MG/2 ML VIAL IV ONE; +OFLOXACIN 0.3% 5 ML BOTTLE ONE; +OFLOXACIN 0.3% 5 ML BOTTLE OPH SCH; +PHENYLEPHRINE/KETOROLAC 4 ML in Balanced Salt Solution 500 ML OPH SCH; +POVIDONE IODINE 5% OPHTHALMIC 30 ML BOTTLE OPH SCH; +Phenylephrine Hydrochloride 2 ML BOT OPH ONE; +Phenylephrine Hydrochloride 2 ML BOT OPH SCH; +Proparacaine Hydrochloride 15 ML BOT OPH ONE; +Proparacaine Hydrochloride 15 ML BOT OPH SCH; +SODIUM CHLORIDE 0.9% 1,000 ML IV SCH; +TROPICAMIDE 3 ML BOT OPH ONE; +TROPICAMIDE 3 ML BOT OPH SCH; +Tetracaine Hydrochloride 0.5% 4 ML BOT OPH ONE; +Tetracaine Hydrochloride 0.5% 4 ML BOT OPH SCH; +prednisoLONE acetate 1% OPHTHALMIC 5 ML BOT OPH ONE; +prednisoLONE acetate 1% OPHTHALMIC 5 ML BOT OPH SCH
[2024-11-17 09:47] VITALS: BP 152/74
[2024-11-17 11:43] VITALS: BP 159/71
[2024-11-17 11:58] VITALS: BP 164/78
[2024-11-17 12:13] VITALS: BP 147/79
== END | disposition home or self-care (01) ==
LOC: SDC 11-15 08:00
PROVIDERS: ATTEND Ophthalmology
DX: E11.36 Type 2 diabetes mellitus with diabetic cataract (principal); H25.11 Age-related nuclear cataract, right eye; I11.0 Hypertensive heart disease with heart failure; I50.9 Heart failure, unspecified; E78.00 Pure hypercholesterolemia, unspecified; J44.9 Chronic obstructive pulmonary disease, unspecified; I25.10 Atherosclerotic heart disease of native coronary artery without angina pectoris; K21.9 Gastro-esophageal reflux disease without esophagitis; F41.9 Anxiety disorder, unspecified; F32.A Depression, unspecified; I25.2 Old myocardial infarction; N40.0 Benign prostatic hyperplasia without lower urinary tract symptoms; G47.30 Sleep apnea, unspecified; G20.A1 Parkinson's disease without dyskinesia, without mention of fluctuations; F43.10 Post-traumatic stress disorder, unspecified; F17.210 Nicotine dependence, cigarettes, uncomplicated; Z90.49 Acquired absence of other specified parts of digestive tract; Z87.440 Personal history of urinary (tract) infections; Z95.1 Presence of aortocoronary bypass graft; Z95.818 Presence of other cardiac implants and grafts; Z98.890 Other specified postprocedural states; Z79.899 Other long term (current) drug therapy

== ENCOUNTER → 2024-12-15 | Day surgery (SDC) | payer MEDICARE, OTHER ==
[~2024-12-15] VITALS: Wt 72.6 kg
[2024-12-15 10:40] VITALS: BP 155/69
[2024-12-15 12:27] VITALS: BP 144/67
[2024-12-15 12:42] VITALS: BP 137/68
[2024-12-15 12:57] VITALS: BP 147/68
== END | disposition home or self-care (01) ==
LOC: SDC 12-13 08:45
PROVIDERS: ATTEND Ophthalmology
DX: E11.36 Type 2 diabetes mellitus with diabetic cataract (principal); H25.12 Age-related nuclear cataract, left eye; I10 Essential (primary) hypertension; I25.10 Atherosclerotic heart disease of native coronary artery without angina pectoris; I25.2 Old myocardial infarction; E78.00 Pure hypercholesterolemia, unspecified; J44.9 Chronic obstructive pulmonary disease, unspecified; K21.9 Gastro-esophageal reflux disease without esophagitis; F41.9 Anxiety disorder, unspecified; F32.A Depression, unspecified; N40.0 Benign prostatic hyperplasia without lower urinary tract symptoms; Z95.0 Presence of cardiac pacemaker; Z95.1 Presence of aortocoronary bypass graft; Z90.49 Acquired absence of other specified parts of digestive tract; Z91.030 Bee allergy status; Z79.899 Other long term (current) drug therapy; Z98.890 Other specified postprocedural states

== ENCOUNTER 2025-02-19 19:02 | Emergency (ER) | payer MEDICARE, OTHER ==
[~2025-02-19] VITALS: Ht 177.8 cm; Wt 75.3 kg
[~2025-02-19 19:02] MED LIST changes: -Balanced Salt Solution 500 ML OPH SCH; -Cefuroxime Sodium 5 MG in BALANCED SALT IRRIG SOLN NO.2 0.5 ML,SYRINGE, DISPOSABLE, 10 ... IO SCH; -Midazolam Hydrochloride 2 MG/2 ML VIAL IV ONE; -OFLOXACIN 0.3% 5 ML BOTTLE ONE; -OFLOXACIN 0.3% 5 ML BOTTLE OPH SCH; -PHENYLEPHRINE/KETOROLAC 4 ML in Balanced Salt Solution 500 ML OPH SCH; -POVIDONE IODINE 5% OPHTHALMIC 30 ML BOTTLE OPH SCH; -Phenylephrine Hydrochloride 2 ML BOT OPH ONE; -Phenylephrine Hydrochloride 2 ML BOT OPH SCH; -Proparacaine Hydrochloride 15 ML BOT OPH ONE; -Proparacaine Hydrochloride 15 ML BOT OPH SCH; -SODIUM CHLORIDE 0.9% 1,000 ML IV SCH; -TROPICAMIDE 3 ML BOT OPH ONE; -TROPICAMIDE 3 ML BOT OPH SCH; -Tetracaine Hydrochloride 0.5% 4 ML BOT OPH ONE; -Tetracaine Hydrochloride 0.5% 4 ML BOT OPH SCH; -prednisoLONE acetate 1% OPHTHALMIC 5 ML BOT OPH ONE; -prednisoLONE acetate 1% OPHTHALMIC 5 ML BOT OPH SCH
[2025-02-19 19:08] VITALS: BP 170/71
[2025-02-19] MEDS ORDERED: Cyclobenzaprine Hydrochlorid 10 MG TAB PO ONE (19:10)
[2025-02-19] MEDS ORDERED: Dexamethasone Sodium Phospha 20 MG/5 ML VIAL IM ONE (20:25)
[2025-02-19] MEDS ORDERED: Ketorolac Tromethamine 30 MG/ML VIAL IM ONE (20:25)
[2025-02-19 21:01] LABS: HEMATOCRIT 30.1 % (42.0-52.0); MEAN CORPUSCULAR HGB 28.1 pg (27.0-31.0); MEAN CORPUSCULAR HGB CONC 30.6 g/dl (33.0-37.0); MEAN PLATELET VOLUME 10.3 fl (9.6-12.3); PLATELET COUNT AUTOMATED 170 10*3/uL (130-400); RED BLOOD COUNT 3.27 10*6/uL (4.50-5.90); WHITE BLOOD COUNT 11.2 10*3/uL (4.8-10.8)
[2025-02-19 21:18] LABS: BUN 21 mg/dl (9-23); CHLORIDE 105 mmol/L (98-107); POTASSIUM 4.5 mmol/L (3.4-5.1)
[2025-02-19 21:25] LABS: MANUAL DIFF REFLEX YES
[2025-02-19 21:28] LABS: TOTAL CELLS COUNTED 100 #CELLS
[2025-02-19 21:29] LABS: PLATELET SUFFICIENCY NORMAL (NORMAL)
[2025-02-19 21:32] LABS: BURR CELLS FEW
[2025-02-19] MEDS ORDERED: CYCLOBENZAPRINE5 M3 PO (22:04)
[2025-02-19] MEDS ORDERED: MEDROL DOSEPAK4 MG PO (22:04)
[2025-02-20] MEDS ORDERED: MEDROL DOSEPAK4 MG PO (09:49)
[2025-02-20] MEDS ORDERED: CYCLOBENZAPRINE5 M3 PO (09:49)
[2025-02-21] MEDS ORDERED: MEMANTINE HCL E14 MG PO (12:53)
[2025-02-21] MEDS ORDERED: SERTRALINE HYDR50 MG PO (12:54)
[2025-02-21] MEDS ORDERED: MELOXICAM7.5 MG PO (12:55)
[2025-02-21] MEDS ORDERED: SINEMET 25-1001 EACH PO (12:57)
== END 2025-02-19 22:44 | disposition home or self-care (01) ==
LOC: ED 19:02
PROVIDERS: Internal Medicine
DX: M62.838 Other muscle spasm (principal); G20.A1 Parkinson's disease without dyskinesia, without mention of fluctuations; M79.605 Pain in left leg; Z91.030 Bee allergy status; Z88.6 Allergy status to analgesic agent; Z79.899 Other long term (current) drug therapy; Z90.49 Acquired absence of other specified parts of digestive tract; Z87.891 Personal history of nicotine dependence; Z53.29 Procedure and treatment not carried out because of patient's decision for other reasons

== ENCOUNTER 2025-03-21 01:22 | Inpatient (IN) | payer MEDICARE, OTHER ==
[~2025-03-21] VITALS: Ht 172.7 cm; Wt 72.1 kg
[2025-03-21] VITALS (9 sets, daily range): BP systolic 81–127; BP diastolic 36–55
[~2025-03-21 01:22] MED LIST changes: +CYCLOBENZAPRINE10 MG PO; +CYCLOBENZAPRINE5 M3 PO; +MEDROL DOSEPAK4 MG PO; +MELOXICAM7.5 MG PO; +MEMANTINE HCL E14 MG PO; +PREDNISONE10 MG PO; +SERTRALINE HYDR50 MG PO; +SINEMET 25-1001 EACH PO; -VITAMIN D325 GM MC; +VITAMIN D325 MC1 PO
[2025-03-21 01:47] LABS: MEAN CELL VOLUME 85.4 fl (80.0-94.0); MEAN CORPUSCULAR HGB 26.1 pg (27.0-31.0); MEAN PLATELET VOLUME 10.1 fl (9.6-12.3); NUCLEATED RED BLOOD CELL 0.0 % (0.0-0.0); NUCLEATED RED BLOOD CELL 0.0 10*3/uL (0.0-0.0); PLATELET COUNT AUTOMATED 189 10*3/uL (130-400); RED CELL DISTRI WIDTH 15.5 % (0-14.5)
[2025-03-21 01:55] LABS: MANUAL DIFF REFLEX YES
[2025-03-21 02:09] LABS: BUN 24 mg/dl (9-23)
[2025-03-21 02:10] LABS: BILIRUBIN Negative (Negative); BLOOD Trace-Intact (Negative); CLARITY Cloudy (Clear); COLOR Yellow (Yellow); KETONE Trace (Negative); LEUKO ESTERASE 2+ (Negative); NITRITE Negative (Negative); PH 5.5 (4.5-8.0); SPECIFIC GRAVITY 1.020 (1.001-1.030); UROBILINOGEN 1.0 E.U./dl (0.0-1.0)
[2025-03-21 02:11] LABS: PLATELET SUFFICIENCY NORMAL (NORMAL)
[2025-03-21 02:16] LABS: SGPT/ALT < 7 U/L (5-49)
[2025-03-21 02:18] LABS: BACTERIA 3+; WBC 21-30 wbc/hpf (0-5)
[2025-03-21] MEDS ORDERED: SODIUM CHLORIDE 0.9% 1,000 ML IV ONE ×2 (02:45→16:25)
[2025-03-21] MEDS ORDERED: Ondansetron Hydrochloride 4 MG/2 ML VIAL IV PRN (04:45)
[2025-03-21] MEDS ORDERED: BISACODYL 10 MG SUPP R PRN (04:45)
[2025-03-21] MEDS ORDERED: BISACODYL 5 MG TAB PO PRN (04:45)
[2025-03-21] MEDS ORDERED: ACETAMINOPHEN 325 MG TAB PO PRN (04:45)
[2025-03-21] MEDS ORDERED: ACETAMINOPHEN 650 MG SUPP R PRN (04:45)
[2025-03-21] MEDS ORDERED: DEXTROSE 50% 25 GM/50 ML VIAL IV PRN (04:55)
[2025-03-21] MEDS ORDERED: Cyclobenzaprine Hydrochlorid 10 MG TAB PO PRN (05:40)
[2025-03-21 05:45] LABS: BUN 23 mg/dl (9-23)
[2025-03-21] MEDS ORDERED: LIDOCAINE 1 EA PATCH T PRN (05:45)
[2025-03-21] MEDS ORDERED: Albuterol Sulf/Ipratropium 3 ML VIAL NEB PRN ×2 (05:50→16:24)
[2025-03-21] MEDS ORDERED: Albuterol Sulf/Ipratropium 3 ML VIAL NEB SCH (06:00)
[2025-03-21 06:28] LABS: MEAN CELL VOLUME 86.3 fl (80.0-94.0); MEAN CORPUSCULAR HGB 25.9 pg (27.0-31.0); MEAN PLATELET VOLUME 11.2 fl (9.6-12.3); NUCLEATED RED BLOOD CELL 0.0 % (0.0-0.0); NUCLEATED RED BLOOD CELL 0.0 10*3/uL (0.0-0.0); PLATELET COUNT AUTOMATED 188 10*3/uL (130-400); RED CELL DISTRI WIDTH 15.4 % (0-14.5)
[2025-03-21 06:29] LABS: MANUAL DIFF REFLEX YES
[2025-03-21 06:52] LABS: PLATELET SUFFICIENCY NORMAL (NORMAL)
[2025-03-21] MEDS ORDERED: INSULIN LISPRO 1 UNIT/0.01 ML SQ SCH (07:30)
[2025-03-21] MEDS ORDERED: SUCRALFATE 1 GM TAB PO SCH (07:30)
[2025-03-21] MEDS ORDERED: SODIUM CHLORIDE 0.9% 500 ML IV ONE (08:25)
[2025-03-21] MEDS ORDERED: CYCLOBENZAPRINE10 MG PO ×2 (09:27→09:28)
[2025-03-21] MEDS ORDERED: PREDNISONE10 MG PO (09:30)
[2025-03-21] MEDS ORDERED: Sinemet Cr 25-11 TAB PO (09:32)
[2025-03-21] MEDS ORDERED: AZITHROMYCIN 250 ML IV SCH (10:00)
[2025-03-21] MEDS ORDERED: FINASTERIDE 5 MG TAB PO SCH (10:00)
[2025-03-21] MEDS ORDERED: Vitamin D 1,000 IU TAB (25 MCG) PO SCH (10:00)
[2025-03-21] MEDS ORDERED: METOPROLOL SUCCINATE XR 25 MG TAB PO SCH (10:00)
[2025-03-21] MEDS ORDERED: FERROUS SULFATE 325 MG TAB PO SCH (10:00)
[2025-03-21] MEDS ORDERED: CYANOCOBALAMIN 500 MCG TAB PO SCH (10:00)
[2025-03-21] MEDS ORDERED: Carbidopa/Levodopa 25/100MG 1 TAB TAB PO SCH (10:00)
[2025-03-21] MEDS ORDERED: GUAIFENESIN 600 MG TAB ER PO SCH (10:00)
[2025-03-21] MEDS ORDERED: MAGNESIUM SULFATE 100 ML IV ONE (16:25)
[2025-03-21] MEDS ORDERED: Carbidopa/Levodopa CR 25/100MG 1 TAB PO SCH (18:00)
[2025-03-21] MEDS ORDERED: SIMVASTATIN 20 MG TAB PO SCH (22:00)
[2025-03-22] VITALS: BP 120/59
[2025-03-22 07:45] LABS: BASO # 0.0 10*3/uL (0.0-0.1); BASO % 0.1 % (0.0-1.0); EOS # 0.1 10*3/uL (0.0-0.4); EOS % 1.0 % (1.0-4.0); MEAN CELL VOLUME 86.8 fl (80.0-94.0); MEAN CORPUSCULAR HGB 25.8 pg (27.0-31.0); MEAN PLATELET VOLUME 10.5 fl (9.6-12.3); MONO # 0.4 10*3/uL (0.1-1.0); MONO % 5.7 % (3.0-9.0); NEUT # 5.9 10*3/uL (2.3-7.9); NEUT % 86.2 % (47.0-73.0); NUCLEATED RED BLOOD CELL 0.0 % (0.0-0.0); NUCLEATED RED BLOOD CELL 0.0 10*3/uL (0.0-0.0); PLATELET COUNT AUTOMATED 168 10*3/uL (130-400); RED CELL DISTRI WIDTH 15.4 % (0-14.5)
[2025-03-22 08:00] VITALS: BP 137/64
[2025-03-22 08:47] LABS: BUN 16 mg/dl (9-23)
[2025-03-22 08:49] LABS: SGPT/ALT < 7 U/L (5-49)
[2025-03-22 12:00] VITALS: BP 121/55
[2025-03-22 16:00] VITALS: BP 92/42
[2025-03-22 20:00] VITALS: BP 146/64
[2025-03-23 05:30] LABS: BUN 11 mg/dl (9-23)
[2025-03-23 06:04] LABS: BASO # 0.0 10*3/uL (0.0-0.1); BASO % 0.2 % (0.0-1.0); EOS # 0.1 10*3/uL (0.0-0.4); EOS % 1.9 % (1.0-4.0); MEAN CELL VOLUME 86.1 fl (80.0-94.0); MEAN CORPUSCULAR HGB 25.5 pg (27.0-31.0); MEAN PLATELET VOLUME 11.0 fl (9.6-12.3); MONO # 0.4 10*3/uL (0.1-1.0); MONO % 8.1 % (3.0-9.0); NEUT # 4.1 10*3/uL (2.3-7.9); NEUT % 76.4 % (47.0-73.0); NUCLEATED RED BLOOD CELL 0.0 % (0.0-0.0); NUCLEATED RED BLOOD CELL 0.0 10*3/uL (0.0-0.0); PLATELET COUNT AUTOMATED 166 10*3/uL (130-400); RED CELL DISTRI WIDTH 15.3 % (0-14.5)
[2025-03-23 08:00] VITALS: BP 133/69
[2025-03-23 12:00] VITALS: BP 139/66
[2025-03-23 16:00] VITALS: BP 127/67
[2025-03-23 20:00] VITALS: BP 100/51
[2025-03-24] VITALS: BP 148/64
[2025-03-24 08:00] VITALS: BP 148/64
[2025-03-24] MEDS ORDERED: ACETAMINOPHEN 60 ML IV ONE (09:35)
[2025-03-24 12:00] VITALS: BP 134/58
[2025-03-24 16:00] VITALS: BP 155/77
[2025-03-24 20:00] VITALS: BP 109/57
[2025-03-25] VITALS: BP 109/57
[2025-03-25 05:10] LABS: BUN 10 mg/dl (9-23)
[2025-03-25 05:57] LABS: BASO # 0.0 10*3/uL (0.0-0.1); BASO % 0.4 % (0.0-1.0); EOS # 0.3 10*3/uL (0.0-0.4); EOS % 6.2 % (1.0-4.0); MEAN CELL VOLUME 84.1 fl (80.0-94.0); MEAN CORPUSCULAR HGB 24.7 pg (27.0-31.0); MEAN PLATELET VOLUME 11.0 fl (9.6-12.3); MONO # 0.5 10*3/uL (0.1-1.0); MONO % 10.0 % (3.0-9.0); NEUT # 3.4 10*3/uL (2.3-7.9); NEUT % 64.0 % (47.0-73.0); NUCLEATED RED BLOOD CELL 0.0 % (0.0-0.0); NUCLEATED RED BLOOD CELL 0.0 10*3/uL (0.0-0.0); PLATELET COUNT AUTOMATED 174 10*3/uL (130-400); RED CELL DISTRI WIDTH 15.3 % (0-14.5)
[2025-03-25 08:00] VITALS: BP 144/89
[2025-03-25] MEDS ORDERED: ACETAMINOPHEN 60 ML IV ONE (08:50)
[2025-03-25 12:08] VITALS: BP 128/56
[2025-03-25 16:00] VITALS: BP 127/58
[2025-03-25 20:00] VITALS: BP 124/56
[2025-03-26] VITALS: BP 144/58
[2025-03-26] MEDS ORDERED: DOXYCYCLINE HY100 M3 PO (07:57)
[2025-03-26] MEDS ORDERED: Ipratropium Brom3 ML NEB (07:57)
[2025-03-26] MEDS ORDERED: TYLENOL325 M2 PO (07:58)
[2025-03-26 08:00] VITALS: BP 173/63
== END 2025-03-26 10:20 | DRG 177 ==
LOC: ED 01:22 → EDHOLD 04:08 → 4E 04:08 → EDHOLD 04:48 → 4E 04:48
PROVIDERS: Internal Medicine; Student in an Organized Health Care Education/Training Program; ADMIT Student in an Organized Health Care Education/Training Program; ATTEND Student in an Organized Health Care Education/Training Program
DX: J69.0 Pneumonitis due to inhalation of food and vomit (principal); E43 Unspecified severe protein-calorie malnutrition; J96.01 Acute respiratory failure with hypoxia; G93.41 Metabolic encephalopathy; N30.01 Acute cystitis with hematuria; I50.32 Chronic diastolic (congestive) heart failure; N17.9 Acute kidney failure, unspecified; J98.11 Atelectasis; K62.89 Other specified diseases of anus and rectum; Z20.822 Contact with and (suspected) exposure to COVID-19; D72.829 Elevated white blood cell count, unspecified; Z66 Do not resuscitate; G20.A1 Parkinson's disease without dyskinesia, without mention of fluctuations; D64.9 Anemia, unspecified; F02.80 Dementia in other diseases classified elsewhere, unspecified severity, without behavioral disturbance, psychotic disturbance, mood disturbance, and anxiety; E11.9 Type 2 diabetes mellitus without complications; N40.0 Benign prostatic hyperplasia without lower urinary tract symptoms; I25.10 Atherosclerotic heart disease of native coronary artery without angina pectoris; K21.9 Gastro-esophageal reflux disease without esophagitis; E78.5 Hyperlipidemia, unspecified; F43.10 Post-traumatic stress disorder, unspecified; N28.89 Other specified disorders of kidney and ureter; K44.9 Diaphragmatic hernia without obstruction or gangrene; I11.0 Hypertensive heart disease with heart failure; Z88.8 Allergy status to other drugs, medicaments and biological substances; Z91.09 Other allergy status, other than to drugs and biological substances; Z79.899 Other long term (current) drug therapy; Z79.01 Long term (current) use of anticoagulants; Z79.2 Long term (current) use of antibiotics; Z90.49 Acquired absence of other specified parts of digestive tract; Z95.1 Presence of aortocoronary bypass graft; Z68.24 Body mass index [BMI] 24.0-24.9, adult